=== PATIENT | female | born 1935 | race Caucasian/White ===

== ENCOUNTER → 2016-10-21 | Outpatient (CLI) | payer OTHER ==
[~2016-10-21] MED LIST: ALBUTEROL SULF8.5 G1 IH; AMIODARONE; AMIODARONE PO; ASPIRIN PO; BACTRIM DS TABL1 TAB PO; BENTYL20 MG PO; COREG; COREG CR PO; COREG PO; FLONASE 0.05% N16 G1; HCTZ; HCTZ PO; HYDROCODONE-APA1 T30 PO; HYDROCODONE/APA1 T16 PO; K DUR; K-DUR PO; LEVAQUIN PO; LIPITOR PO; MACROBID 100 M100 MG PO; MOTION RELIEF25 MG PO; NABUMETONE PO; NEURONTIN300 MG PO; NORCO 5/325 TAB1 TAB PO; NORVASC; PHENERGAN PO; PHENERGAN25 M1 PO; PLAVIX; PREDNISONE PO; PYRIDIUM PO; SYNTHROID; SYNTHROID PO; SYNTHROID88 MCG PO; TOPROL XL; VASOTEC PO; VIBRAMYCIN100 M1 DOB; VICODIN 5/1 TAB 5/50 PO; ZOCOR; ZOFRAN PO
--- NOTE | ~2016-10-21 | CR58 ---
[facility] A Service of [facility] & [facility] RADIOLOGY TEXT RESULTS PATIENT: ROBERTO GALLAGHER LOCATION: [facility] : 34 UNIT #: [id number] AGE: [address]: Bita Luna MD SEX: F ORDER DR: [id number] [facility] [address] [place], [place] [address] [id number] O MR#: [id number] Acc #: [id number] NAME: ROBERTO GALLAGHER : 1935 SEX: F STUDY DATE/TIME: 10/21/2016 16:53 UNIT: [facility] ROOM: STUDY DESCRIPTION: CR Cervical Spine 2 or 3 Views Attending Physician: Bita Luna M.D. Referring Physician: Bita Luna M.D. Ordering Physician: Bita Luna M.D. Primary Care Physician: Bita Luna M.D. MEDICAL IMAGING REPORT This report is preliminary unless electronic signature is present EXAM Cervical spine HISTORY Neck and right shoulder pain radiating to the scapula for 2 years worse over the last 2 weeks. AP lateral and open mouth and flexion/extension views are submitted. FINDINGS There is straightening of the normal cervical lordotic curve with disc space narrowing at C3-4 4-5 and 56. Alignment is normal. With flexion extension there is no evidence of subluxation. Posterior elements appear unremarkable. Compared with a previous CT of January 2008 the disc disease at 3-4 appears to have progressed slightly. CONCLUSION Advanced degenerative disc disease C3-4, 4-5, and C5-6. Some progression of 3-4 since the patient's previous CT. No significant subluxation with flexion extension Dictated by... Dwayne Veliz M.D. THIS IS AN ELECTRONICALLY VERIFIED REPORT Dwayne Veliz M.D. at 10/22/2016 10:35 AM QUEENIE/addison TD: 10/21/2016 23:04 JOB #: [id number] MEDICAL IMAGING REPORT Page 1 of 1 COPY
--- NOTE | ~2016-10-21 | CR230 ---
[facility] A Service of [facility] & [facility] RADIOLOGY TEXT RESULTS PATIENT: ROBERTO GALLAGHER LOCATION: [facility] : 34 UNIT #: [id number] AGE: [address]: Bita Luna MD SEX: F ORDER DR: [id number] [facility] [address] [place], [place] [address] [id number] O MR#: [id number] Acc #: [id number] NAME: ROBERTO GALLAGHER : 1935 SEX: F STUDY DATE/TIME: 10/21/2016 16:57 UNIT: [facility] ROOM: STUDY DESCRIPTION: CR Shoulder Min 2 View Rt Attending Physician: Bita Luna M.D. Referring Physician: Bita Luna M.D. Ordering Physician: Bita Luna M.D. Primary Care Physician: Bita Luna M.D. MEDICAL IMAGING REPORT This report is preliminary unless electronic signature is present EXAM Right shoulder 3 views HISTORY Right shoulder pain for 2 years worse over the last 2 weeks. Pain associated with the neck radiating to the scapula. FINDINGS 3 views are submitted. Bony elements are intact. Joint space and articular surface are preserved. No fractures are identified. CONCLUSION Negative Dictated by... Dwayne Veliz M.D. THIS IS AN ELECTRONICALLY VERIFIED REPORT Dwayne Veliz M.D. at 10/22/2016 10:35 AM QUEENIE/addison TD: 10/21/2016 23:07 JOB #: [id number] MEDICAL IMAGING REPORT Page 1 of 1 COPY
== END | disposition home or self-care (01) ==
LOC: CRAD 16:08
DX: M25.511 Pain in right shoulder (principal); M54.12 Radiculopathy, cervical region; M50.31 Other cervical disc degeneration, high cervical region; M50.321 Other cervical disc degeneration at C4-C5 level; M50.322 Other cervical disc degeneration at C5-C6 level
CPT/HCPCS: 72040; 73030

== ENCOUNTER → 2016-11-10 | Outpatient (CLI) | payer OTHER ==
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
== END | disposition home or self-care (01) ==
LOC: SCT 12:50
DX: M54.12 Radiculopathy, cervical region (principal); M43.12 Spondylolisthesis, cervical region; M48.02 Spinal stenosis, cervical region
CPT/HCPCS: 72125

== ENCOUNTER → 2017-02-16 | Outpatient (CLI) | payer OTHER ==
--- NOTE | ~2017-02-16 | CR63 ---
[facility] A Service of [facility] & [facility] RADIOLOGY TEXT RESULTS PATIENT: ROBERTO GALLAGHER LOCATION: [facility] : 34 UNIT #: [id number] AGE: [address]: Bita Luna MD SEX: F ORDER DR: [id number] [address] [address] [id number] O MR#: [id number] Acc #: [id number] NAME: ROBERTO GALLAGHER : 1935 SEX: F STUDY DATE/TIME: 02/16/2017 10:28 UNIT: [facility] ROOM: STUDY DESCRIPTION: CR Chest 2 View Attending Physician: Bita Luna M.D. Referring Physician: Bita Luna M.D. Ordering Physician: Bita Luna M.D. Primary Care Physician: Bita Luna M.D. MEDICAL IMAGING REPORT This report is preliminary unless electronic signature is present. EXAM Chest x-ray 02/16 INDICATIONS CHF. Yearly checkup. Long history of smoking in the past. FINDINGS 2 views of the chest are compared with 10/01/2015. Cardiomegaly is stable. 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 Lungs appear emphysematous but clear. No pneumothorax identified. There is levoscoliosis in the thoracic spine. IMPRESSION Cardiomegaly. No active disease. Dictated by... Kenneth Rosenthal Jr., M.D. THIS IS AN ELECTRONICALLY VERIFIED REPORT Kenneth Rosenthal Jr., M.D. at 02/17/2017 8:29 AM CINDY/addison TD: 02/16/2017 22:52 JOB #: [id number] MEDICAL IMAGING REPORT Page 1 of 1
== END | disposition home or self-care (01) ==
LOC: SRAD 10:21
DX: I50.9 Heart failure, unspecified (principal); I51.7 Cardiomegaly
CPT/HCPCS: 71020